=== PATIENT | male | born 1980 | race Caucasian/White ===

== ENCOUNTER → 2017-09-19 | Day surgery (SDC) | payer OTHER ==
--- NOTE | 2017-09-17 14:32 | History & Physical Pre-Op ---
General Information and HPI History of Present Illness: Arias is a 36-year-old male with a long-standing and worsening complaint of right heel pain. The patient has undergone an extended course of conservative care, including shoe gear and activity modification, rest, immobilization and courses of NSAIDs. None of this is yielded him any significant relief. The patient presents today for preoperative surgical consultation. The patient was referred to our office from Joe Elam DPM. Allergies/Medications Allergies: Coded Allergies: No Known Allergies (09/15/17) Past History Surgical History Pertinent Surgical History: non-contributory Review of Systems Review of Systems: Unremarkable except for that noted in history of present illness Exam & Diagnostic Data Physical Exam: Lungs clear bilaterally. Heart sounds rate and rhythm regular. Lower extremity physical exam demonstrates intact pedal pulses bilaterally. Both dorsalis pedis and posterior tibial arteries are palpable bilaterally. Patient without any sensory motor deficits. Deep tendon reflexes grossly intact. Patient noted to have significant pain with palpation the plantar medial aspect the right heel. Negative Tinel sign noted with percussion the posterior tibial nerve. Ankle range of motion noted to be diminished, especially in dorsiflexion. Assessment/Plan Assessment/Plan: Plantar fasciitis right foot. A lengthy discussion reviewing both surgical and conservative options was held the patient at bedside and the patient elects to go forward with surgery despite the risks. As Ranked By This Provider Problem List: 1. Plantar fascial fibromatosis Attending MD Review Statement Attending Statement Attending MD Statement: examined this patient
[~2017-09-19] VITALS: Ht 193 cm; Wt 113.4 kg
--- NOTE | 2017-09-19 09:34 | Operative Report ---
Operative/Inv Procedure Report Surgery Date: 09/19/17 Name of Procedure: 1 gastrocnemius recession right 2 open plantar fasciotomy right 3 intraoperative administration of ankle block anesthesia Pre-Operative Diagnosis: 1 gastrocnemius equinus right 2 plantar fasciitis right Post-Operative Diagnosis: The same Estimated Blood Loss: scant Surgeon/Commissioner [employer]: Micha Rizzo DPM, DPM Anesthesia: moderate sedation, block Operative/Procedure Note Note: After obtaining informed consent the patient was brought to the operating room and placed on the operating table in the supine position. The patient was then securely fastened to the operating table utilizing safety belt. After administration of IV sedation, 10 mL of 0.5% Marcaine plain was obtained about the patient's right ankle. A well-padded calf tourniquet was placed about the patient's right upper calf. 2 g of Ancef were delivered intravenously times one dose. The right lower extremity was then scrubbed, prepped and draped in usual aseptic manner. The right lower extremity is elevated to examine to limb, at which point the calf tourniquet was inflated 250 mmHg. Attention directed distal medial leg, where a linear incision was made 2 fingerbreadths distal to the medial have a gastrocnemius muscle. Dissection was then carried down to the medial margin of the gastroc fascia, where an interval was developed between the peritenon and the fascia. A gastrocnemius recession was then performed. The deep tissues reprepped with 4-0 Vicryl and the skin edges plexiform nylon. Attention was then directed to the distal foot, where a 3 cm incision was made at the junction the dorsal plantar skin. The dissection was then carried down to the medial margin of the plantar fascia, which was released from its origin on the medial tubercle calcaneal tuberosity. Any bony prominences identified was removed and smoothed with a bone rasp. The wound was then irrigated with cuff Svensson normal sterile saline. The deep tissues reapproximated 3-0 Vicryl and the skin edges reapproximated 3-0 nylon. The incisions were then dressed with Xeroform, 4 x 4's, Kerlix and Gerard wrap. The patient was noted to tolerate both procedure and anesthesia well and the patient was transported from the operating room to recovery with vital signs stable best assess intact all digits right foot. Please cc a copy of this dictation to Joe Elam DPM.
== END ==
LOC: STS 02:12
DX: M62.461 Contracture of muscle, right lower leg (principal); M72.2 Plantar fascial fibromatosis
CPT/HCPCS: J0690; J1100; J2001; J2250; J3490